=== PATIENT | female | born 1950 | race Caucasian/White ===

== ENCOUNTER 2016-11-28 03:22 | Emergency (ER) | payer OTHER ==
[~2016-11-28 03:22] MED LIST: ALBUTEROL S3 ML/VIAL NEB; COZAAR50 MG PO; CYCLOBENZAPRINE10 MG PO; FLONASE ALLER15.8 ML; GLUCOPHAGE XR500 MG PO; IBUPROFEN600 MG PO; IPRAT-ALBUT 0.5-3 ML IH; LEVAQUIN500 MG PO; LOPRESSOR50 MG PO; LORTAB 5-325 M1 EACH PO; NEURONTIN400 MG PO; NORVASC5 MG PO; NYSTATIN5 ML PO
== END 2016-11-28 06:50 | disposition home or self-care (01) ==
LOC: ER 03:22
DX: R07.2 Precordial pain (principal); M25.512 Pain in left shoulder; R68.84 Jaw pain; E11.9 Type 2 diabetes mellitus without complications; J44.9 Chronic obstructive pulmonary disease, unspecified; E11.40 Type 2 diabetes mellitus with diabetic neuropathy, unspecified; Z90.49 Acquired absence of other specified parts of digestive tract; Z90.710 Acquired absence of both cervix and uterus; Z87.442 Personal history of urinary calculi; Z79.899 Other long term (current) drug therapy; Z79.82 Long term (current) use of aspirin; Z79.84 Long term (current) use of oral hypoglycemic drugs; Z88.2 Allergy status to sulfonamides; Z88.1 Allergy status to other antibiotic agents
CPT/HCPCS: 36415

== ENCOUNTER 2017-03-01 17:20 | Emergency (ER) | payer OTHER | END 2017-03-01 20:19 | disposition home or self-care (01) | LOC: ER 17:20 | DX: M54.5 Low back pain (principal); J44.9 Chronic obstructive pulmonary disease, unspecified; E11.9 Type 2 diabetes mellitus without complications; I50.9 Heart failure, unspecified; Z87.442 Personal history of urinary calculi; Z90.49 Acquired absence of other specified parts of digestive tract; Z90.710 Acquired absence of both cervix and uterus; Z79.82 Long term (current) use of aspirin; Z79.84 Long term (current) use of oral hypoglycemic drugs; Z79.899 Other long term (current) drug therapy; Z88.1 Allergy status to other antibiotic agents; X50.1XXA Overexertion from prolonged static or awkward postures, initial encounter; Y92.009 Unspecified place in unspecified non-institutional (private) residence as the place of occurrence of the external cause | CPT/HCPCS: 36415; 96361; 96374; 96375 ==

== ENCOUNTER 2017-03-14 19:41 | Emergency (ER) | payer OTHER | END 2017-03-14 22:18 | disposition home or self-care (01) | LOC: ER 19:41 | DX: N30.00 Acute cystitis without hematuria (principal); E11.40 Type 2 diabetes mellitus with diabetic neuropathy, unspecified; I50.9 Heart failure, unspecified; E66.9 Obesity, unspecified; Z90.49 Acquired absence of other specified parts of digestive tract; Z88.2 Allergy status to sulfonamides; Z79.82 Long term (current) use of aspirin; Z79.84 Long term (current) use of oral hypoglycemic drugs; Z79.899 Other long term (current) drug therapy | CPT/HCPCS: 36415; 96374; 96375; J1885 ==